=== PATIENT | female | born 1970 | race Two or more races ===

== ENCOUNTER 2023-05-17 06:35 | Emergency (ER) | payer OTHER ==
[~2023-05-17] VITALS: Ht 157.5 cm; Wt 106.8 kg
[2023-05-17 06:44] VITALS: BP 131/60; PULSE 78; RESP 14; TEMP 98.6
[2023-05-17] MEDS ORDERED: PRAZ1 PO (07:00)
[2023-05-17] MEDS ORDERED: SERT-439 PO (07:00)
[2023-05-17] MEDS ORDERED: LIDOCAINE 1% 10 ML VIAL SQ ONE (07:45)
[2023-05-17] MEDS ORDERED: KETOROLAC TROMETHAMINE 60 MG/2 ML VIAL IM ONE (08:30)
[2023-05-17] MEDS ORDERED: CEPHALEXIN MONOHYDRATE 500 MG CAPSULE PO ONE (09:30)
[2023-05-17] MEDS ORDERED: SULFAMETHOX/TRIMETH DS 800-160 MG/TABLET PO ONE (09:30)
[2023-05-17] MEDS ORDERED: CEPH-558 PO (09:47)
[2023-05-17] MEDS ORDERED: SULF-261 PO (09:47)
[2023-05-17] MEDS ORDERED: IBUP-1492 PO (09:48)
== END 2023-05-17 11:18 | disposition home or self-care (01) ==
LOC: EDBD 06:37 → EMS 06:37
DX: L03.032 Cellulitis of left toe (principal); Z90.710 Acquired absence of both cervix and uterus; Z88.5 Allergy status to narcotic agent
CPT/HCPCS: 99283; 73660; 96372; J1885; J3490

== ENCOUNTER 2023-06-24 16:57 | Emergency (ER) | payer OTHER ==
[~2023-06-24] VITALS: Ht 157.5 cm; Wt 106.8 kg
[~2023-06-24 16:57] MED LIST: CEPH-558 PO; IBUP-1492 PO; PRAZ1 PO; SERT-439 PO; SULF-261 PO
[2023-06-24 17:03] VITALS: BP 131/64; PULSE 88; RESP 18; TEMP 98.3
[2023-06-24 17:12] LABS: COVID AG,FIA SOURCE NASAL SWAB
[2023-06-24 17:32] LABS: INFLUENZA TYPE A NEGATIVE FOR TYPE A (NEGATIVE); INFLUENZA TYPE B NEGATIVE FOR TYPE B (NEGATIVE); SARS-COV2 (COVID) ANTIGEN,FIA Negative (Negative)
[2023-06-24] MEDS ORDERED: PRED-554 PO (19:22)
[2023-06-24] MEDS ORDERED: ALBU18HF12 IH (19:22)
[2023-06-24] MEDS ORDERED: AZIT250T9 PO (19:22)
[2023-06-24] MEDS ORDERED: PredniSONE 20 MG TABLET PO ONE (19:30)
== END 2023-06-24 19:53 | disposition home or self-care (01) ==
LOC: EMS 17:05
DX: J45.909 Unspecified asthma, uncomplicated (principal); Z90.710 Acquired absence of both cervix and uterus; Z88.5 Allergy status to narcotic agent; Z20.822 Contact with and (suspected) exposure to COVID-19
CPT/HCPCS: 99284; 71045; 87426; 87804; J7512

== ENCOUNTER → 2023-11-23 | Emergency (ER) | payer OTHER ==
[~2023-11-23] VITALS: Ht 160 cm; Wt 104.5 kg
[~2023-11-23] MED LIST changes: +ALBU18HF12 IH; +AMOX1TAB16 PO; -CEPH-558 PO; +FLUT16SP NASAL; +HYDR-4062 PO; +OXYM15SP57 NASAL; +PRED-554 PO; +PSEU-221 PO; -SULF-261 PO
[2023-11-23 12:40] VITALS: BP 167/67; PULSE 94; RESP 18; TEMP 98.4
== END | disposition still patient (30) ==
LOC: EMS 12:21
DX: J32.9 Chronic sinusitis, unspecified (principal); Z90.710 Acquired absence of both cervix and uterus; Z88.5 Allergy status to narcotic agent
CPT/HCPCS: 99283

== ENCOUNTER 2024-09-05 14:18 | Emergency (ER) | payer OTHER ==
[~2024-09-05] VITALS: Ht 154.9 cm; Wt 111.4 kg
[~2024-09-05 14:18] MED LIST changes: +AMOX-457 PO; -AMOX1TAB16 PO; -OXYM15SP57 NASAL; +OXYM15SP63 NASAL
[2024-09-05 14:22] VITALS: TEMP 98.5
[2024-09-05] MEDS: KETOROLAC TROMETHAMINE 30 MG/ML VIAL IM ONE (15:48)
[2024-09-05] MEDS ORDERED: CYCL-448 PO (15:49)
[2024-09-05] MEDS ORDERED: IBUP-1492 PO (15:49)
[2024-09-05 15:58] VITALS: BP 145/95; PULSE 89; RESP 18; O2SAT 98
== END 2024-09-05 15:59 | disposition home or self-care (01) ==
LOC: EMS 14:22
DX: S39.012A Strain of muscle, fascia and tendon of lower back, initial encounter (principal); Z88.5 Allergy status to narcotic agent; Z90.710 Acquired absence of both cervix and uterus; X58.XXXA Exposure to other specified factors, initial encounter; Y93.89 Activity, other specified; Y92.89 Other specified places as the place of occurrence of the external cause; Y99.8 Other external cause status
CPT/HCPCS: 99283; 96372; J1885